=== PATIENT | female | born 1955 | race Caucasian/White ===

== ENCOUNTER 2017-09-26 12:00 | Inpatient (IN) | payer MEDICARE, OTHER ==
[~2017-09-26] VITALS: Ht 172.7 cm; Wt 62.7 kg
[~2017-09-26 12:00] MED LIST: CARB1TAB3 PO
--- NOTE | 2017-09-26 12:45 | RAD ---
CT scan of the head without contrast 09/26/2017 Clinical History: Slurred speech. Weakness. Code stroke. Technique: Unenhanced, contiguous, 5 mm axial sections were obtained through the head. One or more of the following individualized dose reduction techniques were utilized for this study: 1. Automated exposure control. 2. Adjustment of the mA and/or kV according to patient size. 3. Use of iterative reconstruction technique. Findings: No previous imaging studies are available for comparison. The patient is post left temporal craniotomy. There is mild generalized parenchymal atrophy. No acute parenchymal abnormality is seen. No extra-axial fluid collection is noted. No skull fracture is seen. Impression: No acute intracranial abnormality is seen. This result was called to Dr. eKn of the emergency department at 1217 hours. Electronically signed by: Juliocesar Elizondo MD (09/26/2017 12:42 PM) [id number]
[2017-09-26 12:52] LABS: BASO # 0.1 x10^3/uL (0.0-0.2); BASO % 1 % (0-3); EOS # 0.2 x10^3/uL (0.0-0.7); EOS % 2 % (0-3); HEMATOCRIT 38.8 % (36.0-47.0); HEMOGLOBIN 13.4 g/dL (12.0-15.5); LYMPH # 1.9 x10^3/uL (1.0-4.8); LYMPH % 20 % (24-48); MEAN CORPUSCULAR HEMOGLOBIN 30 pg (25-35); MEAN CORPUSCULAR HGB CONC 35 g/dL (31-37); MEAN CORPUSCULAR VOLUME 86 fL (79-100); MONO # 0.5 x10^3/uL (0.0-1.1); MONO % 6 % (0-9); NEUT # 6.5 x10^3uL (1.8-7.7); NEUT % 71 % (31-73); PLATELET COUNT 236 x10^3/uL (140-400); RED BLOOD COUNT 4.49 x10^6/uL (3.50-5.40); WHITE BLOOD COUNT 9.2 x10^3/uL (4.0-11.0)
[2017-09-26 12:59] LABS: CALCIUM 9.3 mg/dL (8.5-10.1); CREATININE 0.8 mg/dL (0.6-1.0); GFR 72.7; POTASSIUM 3.9 mmol/L (3.5-5.1)
--- NOTE | 2017-09-26 14:23 | PHYS DOC ---
Past History Past Medical History: No Pertinent History Past Surgical History: Appendectomy Smoking: Non-smoker Alcohol Use: None Drug Use: None Adult General Chief Complaint Chief Complaint: WEAKNESS/GENERALIZED HPI HPI Patient is a 61 year old F who presents with increasing falls over the past 2-3 weeks. She also describes blurred vision and decreased sensation in her hands and feet. Her notes drooling and coughing/choking after eating meals. She is accompanied by her states that this these symptoms are relatively unchanged over the past 24 hours. She also describes an occasional fluttering feeling in her chest. She denies chest pain. She does note mild dizziness. She has no other associated symptoms. She has no other exacerbating or alleviating factors. Review of Systems Review of Systems Constitutional: Denies fever or chills [] Eyes: Denies redness, or eye pain [] HENT: Denies nasal congestion or sore throat [] Respiratory: Denies cough or shortness of breath [] Cardiovascular: No additional information not addressed in HPI [] GI: Denies abdominal pain, nausea, vomiting, bloody stools or diarrhea [] : Denies dysuria or hematuria [] Musculoskeletal: Denies back pain or joint pain [] Integument: Denies rash or skin lesions [] Neurologic: Denies headache Endocrine: Denies polyuria or polydipsia [] All other systems were reviewed and found to be within normal limits, except as documented in this note. Family History Family History No pertinent family medical history reported Current Medications Current Medications Current medications reviewed Allergies Allergies Allergies Coded Allergies Type Severity Reaction Last Updated Verified bee venom (honey bee) Allergy Intermediate sob 12/13/13 No codeine Allergy Intermediate rash 12/13/13 No Physical Exam Physical Exam Constitutional: Well developed, well nourished, no acute distress, non-toxic appearance. [] HENT: Normocephalic, atraumatic, Eyes: EOMI, conjunctiva normal, no discharge. [] Decreased peripheral vision in all russo noted Neck: Normal range of motion, no tenderness, supple, no stridor. [] Cardiovascular:Heart rate regular rhythm, Lungs & Thorax: Bilateral breath sounds clear to auscultation [] Abdomen: Bowel sounds normal, soft, no tenderness, no masses, no pulsatile masses. [] Skin: Warm, dry, no erythema, no rash. [] Extremities: No tenderness, no cyanosis, no clubbing, ROM intact, no edema. [] Neurologic: Alert and oriented X 3, no focal deficits noted. [] Generalized weakness and decreased sensation in the hands and feet bilaterally Psychologic: Affect normal, judgement normal, mood normal. [] Current Patient Data Vital Signs Vital Signs Date Time Temp Pulse Resp B/P (MAP) Pulse Ox O2 Delivery O2 Flow Rate FiO2 09/27/17 05:20 97.5 69 18 140/86 (104) 96 Room Air 09/26/17 21:50 97.8 80 18 107/69 (82) 96 Room Air 09/26/17 19:20 Room Air 09/26/17 16:55 Room Air 09/26/17 15:38 97.9 55 20 162/85 (110) 99 Room Air 09/26/17 15:00 70 17 144/84 (104) 96 09/26/17 14:42 112 17 153/99 (117) 97 09/26/17 14:20 86 19 98 09/26/17 12:50 68 18 98 09/26/17 12:10 98.9 67 20 100 Room Air Lab Results Laboratory Tests Test 09/26/17 12:24 White Blood Count 9.2 x10^3/uL (4.0-11.0) Red Blood Count 4.49 x10^6/uL (3.50-5.40) Hemoglobin 13.4 g/dL (12.0-15.5) Hematocrit 38.8 % (36.0-47.0) Mean Corpuscular Volume 86 fL (79-100) Mean Corpuscular Hemoglobin 30 pg (25-35) Mean Corpuscular Hemoglobin Concent 35 g/dL (31-37) Red Cell Distribution Width 13.0 % (11.5-14.5) Platelet Count 236 x10^3/uL (140-400) Neutrophils (%) (Auto) 71 % (31-73) Lymphocytes (%) (Auto) 20 % (24-48) L Monocytes (%) (Auto) 6 % (0-9) Eosinophils (%) (Auto) 2 % (0-3) Basophils (%) (Auto) 1 % (0-3) Neutrophils # (Auto) 6.5 x10^3uL (1.8-7.7) Lymphocytes # (Auto) 1.9 x10^3/uL (1.0-4.8) Monocytes # (Auto) 0.5 x10^3/uL (0.0-1.1) Eosinophils # (Auto) 0.2 x10^3/uL (0.0-0.7) Basophils # (Auto) 0.1 x10^3/uL (0.0-0.2) Sodium Level 142 mmol/L (136-145) Potassium Level 3.9 mmol/L (3.5-5.1) Chloride Level 105 mmol/L (98-107) Carbon Dioxide Level 30 mmol/L (21-32) Anion Gap 7 (6-14) Blood Urea Nitrogen 17 mg/dL (7-20) Creatinine 0.8 mg/dL (0.6-1.0) Estimated GFR (Cockcroft-Gault) 72.7 Glucose Level 102 mg/dL (70-99) H Calcium Level 9.3 mg/dL (8.5-10.1) Creatine Kinase 37 U/L (26-192) Creatine Kinase MB (Mass) < 0.5 ng/mL (0.0-3.6) Creatine Kinase MB Relative Index 1.4 % (0-4) Troponin I Quantitative < 0.017 ng/mL (0-0.055) EKG EKG Sinus rhythm versus subtle a flutter. No ST changes Radiology/Procedures Radiology/Procedures CT head Impressions: No acute disease Course & Med Decision Making Course & Med Decision Making Pertinent Labs and Imaging studies reviewed. (See chart for details) [] Dragon Disclaimer Dragon Disclaimer This electronic medical record was generated, in whole or in part, using a voice recognition dictation system. Departure Departure: Impression: Primary Impression: Atrial flutter Disposition: ADMITTED INPATIENT Admitting Physician: Vivian Martino Condition: STABLE Referrals: WU,MANE (PCP) Problem Qualifiers Primary Impression: Atrial flutter Atrial flutter type: atypical Qualified Codes: I48.4 - Atypical atrial flutter ADORE COOPER MD Sep 26, 2017 14:23
--- NOTE | 2017-09-26 15:03 | EKG ---
[address] [address] Test Date: 2017-09-26 Test Time: 12:18:47 Pat Name: PHAM BISHOP Department: Room: Gender: F Legislative Correspondent: ARPAN : 1955 Requested By: ADORE COOPER Order Number: [id number] Reading MD: Measurements Intervals [place] Rate: 66 P: OK: QRS: 37 QRSD: 72 T: 58 QT: 382 QTc: 402 Interpretive Statements IRREGULAR RHYTHM, NO P-WAVE FOUND NO SPECIFIC ECG ABNORMALITIES RI6.01 No previous ECG available for comparison
[2017-09-26 15:16] LABS: CLARITY,URINE CLOUDY; COLOR,URINE YELLOW; GLUCOSE,URINE NEG (NEG)
[2017-09-26 15:17] LABS: BACTERIA,URINE MANY /HPF (0-FEW); BILIRUBIN,URINE NEG (NEG); NITRITE,URINE NEG (NEG); RBC,URINE OCC /HPF (0-2); SQUAMOUS EPITHELIAL CELL,UR MANY /LPF; UROBILINOGEN,URINE 0.2 mg/dL (0.2 mg/dL)
[2017-09-26 15:38] VITALS: BP 162/85
[2017-09-26] MEDS ORDERED: CHOL10003 PO (16:38)
[2017-09-26] MEDS ORDERED: OXYB5TAB PO (16:38)
[2017-09-26] MEDS ORDERED: LATA2.5D3 OU (16:38)
[2017-09-26] MEDS ORDERED: CARB1TAB47 PO (16:38)
[2017-09-26] MEDS ORDERED: ATOR10TA60 PO (16:38)
[2017-09-26] MEDS ORDERED: MULT1TAB45 PO (16:38)
--- NOTE | 2017-09-26 16:46 | NUR ---
NSG NOTE; ADMISSION ADMIT TO ROOM 109 AT 1530 FROM ED VIA CART ACCCOMP BY EMS PERSONNEL AND PT HAS INCREASED WEAKNESS X 1 WEEK WITH FALLS. 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 A FLUTTER WAS DISCOVERED IN THE ED BUT THE PT'S SAYS THAT IS NOT NEW
--- NOTE | 2017-09-26 16:49 | NUR ---
RUPALIG NOTE; DR oJao EDWARD CONSULT CALLED DIRECTLY TO HIM AT 1630 Addendum: 09/26/17 at 1908 by CHANELLE PAYNE RN DR EDWARD HERE TO SEE PT THIS BIBI
--- NOTE | 2017-09-26 16:50 | NUR ---
NSG NOTE; DR HERMAN CONSULT CALLED TO ANSWERING SERVICE AT 1638
--- NOTE | 2017-09-26 16:51 | NUR ---
NSG NOTE; HOME ENVIRONMENT MEALS ON WHEELS [address] [facility] PT/OT/ST COMES 3X WEEKLY FOR 3 MONTHS AT A TIME. SHE IS CURRENTLY NOT HAVING HOME HEALTH COME TO THE HOME ANNALEE IS ABLE TO PROVIDE HER CARES AT THE HOME
--- NOTE | 2017-09-26 19:08 | NUR ---
DR HERMAN CALLED ABOUT CONSULT AND WILL SEE PT IN THE AM
[2017-09-26] MEDS ORDERED: CARBIDOPA/LEVODOPA 25/100MG TABLET PO SCH (21:00)
[2017-09-26] MEDS ORDERED: OXYBUTYNIN CHLORIDE 5 MG TABLET PO SCH (21:00)
[2017-09-26] MEDS ORDERED: LATANOPROST 0.005% OPHTH SOLUTION 2.5ML BOTTLE. OU SCH (21:00)
[2017-09-26 21:50] VITALS: BP 107/69
[2017-09-27 05:20] VITALS: BP 140/86
--- NOTE | 2017-09-27 05:28 | PDOC1 ---
History of Present Illness Reason for Visit: Weakness History of Present Illness Pt states she was sent here by her PCP yesterday due to "not liking my heart rhythm." She reportedly had been feeling more weak lately. 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 This morning she denies chest pain, palpitatinos, dizziness, vomiting, abd pain, blood in stool, fever, sore throat, etc. She has a hx of PD and sees a neurologist at regularly. She states she has never been on blood thinners. Per nursing staff, she has had only a couple brief runs of atrial flutter but none recently (none since midnight). Chief Complaint: WEAKNESS/GENERALIZED Allergies: Coded Allergies: bee venom (honey bee) (Unverified Allergy, Intermediate, sob, 12/13/13) codeine (Unverified Allergy, Intermediate, rash, 12/13/13) Past Medical History Cardiac: hyperipidemia, Other (Atrial flutter) Musculoskeletal: Other (Parkinsons) Past Surgical History: Appendectomy, Other (S/p craniotomy) Family History: No pertinent hx Past Social History Smoke: No Alcohol: none Drugs: None Lives: with Family Review of Systems Review Of Systems Fourteen system , review of systems has been reviewed. See HPI for pertinent positives and negative responses, other merlos all other systems are negative, non pertinent or non contributory Allergies: Coded Allergies: bee venom (honey bee) (Unverified Allergy, Intermediate, sob, 12/13/13) codeine (Unverified Allergy, Intermediate, rash, 12/13/13) Medications Current Medications Pneumococcal Polyvalent Vaccine (Pneumovax 23) 0.5 ml ONCE ONCE VAX IM ; Start 09/27/17 at 09:00; Stop 09/27/17 at 09:01 Atorvastatin Calcium (Lipitor) 10 mg DAILY PO ; Start 09/27/17 at 09:00 Vitamin D (Vitamin D3) 1,000 unit DAILY PO ; Start 09/27/17 at 09:00 Latanoprost (Xalatan) 1 drop HS OU ; Start 09/26/17 at 21:00 Multivitamins (Chewable-Suri) 2 tab DAILY PO ; Start 09/27/17 at 09:00 Carbidopa/Levodopa (Sinemet 25/100) 1 tab HS PO Last administered on 09/26/17at 21:33; Start 09/26/17 at 21:00 Oxybutynin Chloride (Ditropan) 5 mg HS PO Last administered on 09/26/17at 21:33 ; Start 09/26/17 at 21:00 Active Scripts Active Reported Chewable-Suri (Multivitamin) 1 Each Tab.chew 2 Each PO DAILY Vitamin D3 (Cholecalciferol (Vitamin D3)) 1,000 Unit Tablet 1,000 Units PO DAILY Atorvastatin Calcium 10 Mg Tablet 10 Mg PO DAILY Latanoprost 2.5 Ml Drops 1 Drop OU HS Oxybutynin Chloride Er (Oxybutynin Chloride) 5 Mg Tab.er.24 5 Mg PO HS Carbidopa-Levo 25-100 Mg Odt (Carbidopa/Levodopa) 1 Each Tab.rapdis 1 Each PO HS Exam Vital Signs Vital Signs Date Time Temp Pulse Resp B/P (MAP) Pulse Ox O2 Delivery O2 Flow Rate FiO2 09/26/17 21:50 97.8 80 18 107/69 (82) 96 Room Air General Appearance: Alert, Oriented X3, Cooperative, No acute distress, Other ( Verbal responses appropriate but slow (which is baseline)) HEENT: Atraumatic, PERRLA, EOMI, Mucous membr. moist/pink, Other (Neck supple, no JVD, no LAD, no thyromegaly) Respiratory: Clear to auscultation, Normal air movement Heart: Regular rate, Normal S1, Normal S2, No murmurs Abdominal: Normal bowel sounds, Soft, No tenderness, No hepatospenomegaly, No masses Extremities: No edema, Normal pulses, No tenderness/swelling Skin: No rashes, No breakdown Neuro: Other (Pt fairly rigid with no resting tremors. Back stiff. No focal neurologic deficits noted.) Psych/Mental Status: Mood NL Assessment/Plan Assessment/Plan 1. Atrial flutter: Defer decision re: anticoagulation to cardiology, pt is definitely a fall risk w/ PD. Pt is in NSR now. Rate is controlled. F/u on labs this AM. 2. PD: Pt seen by Dr. Camargo. No changes in meds. Cont to f/u with neuro as outpatient. 3. DVT proph: Heparin. 4. Hyperlipidemia: Continue atorvastatin. 5. Disp: Pending cardiology evaluation. Potential d/c candidate. COURSE Allergies Coded Allergies Type Severity Reaction Last Updated Verified bee venom (honey bee) Allergy Intermediate sob 12/13/13 No codeine Allergy Intermediate rash 12/13/13 No Laboratory Tests Test 09/26/17 12:24 09/26/17 14:40 White Blood Count 9.2 x10^3/uL (4.0-11.0) Red Blood Count 4.49 x10^6/uL (3.50-5.40) Hemoglobin 13.4 g/dL (12.0-15.5) Hematocrit 38.8 % (36.0-47.0) Mean Corpuscular Volume 86 fL (79-100) Mean Corpuscular Hemoglobin 30 pg (25-35) Mean Corpuscular Hemoglobin Concent 35 g/dL (31-37) Red Cell Distribution Width 13.0 % (11.5-14.5) Platelet Count 236 x10^3/uL (140-400) Neutrophils (%) (Auto) 71 % (31-73) Lymphocytes (%) (Auto) 20 % (24-48) Monocytes (%) (Auto) 6 % (0-9) Eosinophils (%) (Auto) 2 % (0-3) Basophils (%) (Auto) 1 % (0-3) Neutrophils # (Auto) 6.5 x10^3uL (1.8-7.7) Lymphocytes # (Auto) 1.9 x10^3/uL (1.0-4.8) Monocytes # (Auto) 0.5 x10^3/uL (0.0-1.1) Eosinophils # (Auto) 0.2 x10^3/uL (0.0-0.7) Basophils # (Auto) 0.1 x10^3/uL (0.0-0.2) Sodium Level 142 mmol/L (136-145) Potassium Level 3.9 mmol/L (3.5-5.1) Chloride Level 105 mmol/L (98-107) Carbon Dioxide Level 30 mmol/L (21-32) Anion Gap 7 (6-14) Blood Urea Nitrogen 17 mg/dL (7-20) Creatinine 0.8 mg/dL (0.6-1.0) Estimated GFR (Cockcroft-Gault) 72.7 Glucose Level 102 mg/dL (70-99) Calcium Level 9.3 mg/dL (8.5-10.1) Creatine Kinase 37 U/L (26-192) Creatine Kinase MB (Mass) < 0.5 ng/mL (0.0-3.6) Creatine Kinase MB Relative Index 1.4 % (0-4) Troponin I Quantitative < 0.017 ng/mL (0-0.055) Urine Collection Type Unknown Urine Color Yellow Urine Clarity Cloudy Urine pH 7.0 Urine Specific [place] 1.020 Urine Protein Neg (NEG-TRACE) Urine Glucose (UA) Neg mg/dL (NEG) Urine Ketones (Stick) Neg mg/dL (NEG) Urine Blood Neg (NEG) Urine Nitrite Neg (NEG) Urine Bilirubin Neg (NEG) Urine Urobilinogen Dipstick 0.2 mg/dL (0.2 mg/dL) Urine Leukocyte Esterase Trace (NEG) Urine RBC Occ /HPF (0-2) Urine WBC 11-20 /HPF (0-4) Urine Squamous Epithelial Cells Many /LPF Urine Bacteria Many /HPF (0-FEW) Current Medications Medications (Trade) Dose Ordered Sig/Sidney Route PRN Reason Start Time Stop Time Status Last Admin Dose Admin Pneumococcal Polyvalent Vaccine (Pneumovax 23) 0.5 ml ONCE ONCE VAX IM 09/27/17 09:00 09/27/17 09:01 Atorvastatin Calcium (Lipitor) 10 mg DAILY PO 09/27/17 09:00 Vitamin D (Vitamin D3) 1,000 unit DAILY PO 09/27/17 09:00 Latanoprost (Xalatan) 1 drop HS OU 09/26/17 21:00 Multivitamins (Chewable-Suri) 2 tab DAILY PO 09/27/17 09:00 Carbidopa/Levodopa (Sinemet 25/100) 1 tab HS PO 09/26/17 21:00 09/26/17 21:33 Oxybutynin Chloride (Ditropan) 5 mg HS PO 09/26/17 21:00 09/26/17 21:33 I & O 09/27/17 00:00 Intake Total 390 ml Balance 390 ml Vital Signs Date Time Temp Pulse Resp B/P (MAP) Pulse Ox O2 Delivery O2 Flow Rate FiO2 09/26/17 21:50 97.8 80 18 107/69 (82) 96 Room Air EKG: NSR CT Head: Clinical History: Slurred speech. Weakness. Code stroke. Technique: Unenhanced, contiguous, 5 mm axial sections were obtained through the head. One or more of the following individualized dose reduction techniques were utilized for this study: 1. Automated exposure control. 2. Adjustment of the mA and/or kV according to patient size. 3. Use of iterative reconstruction technique. Findings: No previous imaging studies are available for comparison. The patient is post left temporal craniotomy. There is mild generalized parenchymal atrophy. No acute parenchymal abnormality is seen. No extra-axial fluid collection is noted. No skull fracture is seen. Impression: No acute intracranial abnormality is seen. MEGAN LIANG MD Sep 27, 2017 05:28
[2017-09-27 06:25] LABS: BASO # 0.1 x10^3/uL (0.0-0.2); BASO % 1 % (0-3); EOS # 0.2 x10^3/uL (0.0-0.7); EOS % 4 % (0-3); HEMATOCRIT 36.7 % (36.0-47.0); HEMOGLOBIN 12.9 g/dL (12.0-15.5); LYMPH % 31 % (24-48); MEAN CORPUSCULAR HEMOGLOBIN 30 pg (25-35); MEAN CORPUSCULAR HGB CONC 35 g/dL (31-37); MEAN CORPUSCULAR VOLUME 85 fL (79-100); MONO # 0.5 x10^3/uL (0.0-1.1); MONO % 7 % (0-9); NEUT # 3.8 x10^3uL (1.8-7.7); NEUT % 57 % (31-73); PLATELET COUNT 221 x10^3/uL (140-400); RED CELL DISTRIBUTION WIDTH 12.8 % (11.5-14.5); WHITE BLOOD COUNT 6.6 x10^3/uL (4.0-11.0)
[2017-09-27] MEDS: HEPARIN PF for SUB-Q USE 5,000 UNIT/0.5 ML VIAL. SQ SCH ×2 (06:26→13:36)
[2017-09-27 06:28] LABS: CREATININE 0.7 mg/dL (0.6-1.0); GFR 84.8; POTASSIUM 3.7 mmol/L (3.5-5.1)
[2017-09-27] MEDS ORDERED: [UNRECOGNIZED DRUG - OTHER] PO SCH (09:00)
[2017-09-27] MEDS ORDERED: ATORVASTATIN CALCIUM 10 MG TABLET. PO SCH (09:00)
[2017-09-27] MEDS ORDERED: PNEUMOC CONJ VACC 23-VALENT 0.5 ML VIAL. VAX IM ONE (09:00)
[2017-09-27] MEDS ORDERED: CHOLECALCIFEROL (VITAMIN D3) 1,000 UNIT TABLET PO SCH (09:00)
[2017-09-27 11:00] VITALS: BP 94/61
[2017-09-27] MEDS ORDERED: ACETAMINOPHEN 325 MG TABLET PO PRN (13:15)
[2017-09-27 15:31] VITALS: BP 147/87
--- NOTE | 2017-09-27 17:10 | PDOC ---
PROVIDER NOTE PROVIDER NOTE PROVIDER NOTE CARDIOLOGY CONSULTATION NOTE: Reason for consultation: Possible arrhythmia. HPI: Pleasant 61 y.o woman presenting for mental status change. Initial EMS EKG revealed possible concern for arrhythmia. She underwent CT head as part of a stroke protocol and this was negative. She was admitted for eval of possible atrial arrhythmias. She denies any chest pain, dyspnea, orthopnea or PND. No LE edema or prior cardiac disease. Thinks she may have had a remote history of possible palpitations. No recent issues but due to her history of parkinson's she has unsteady gait with the need for a cane. PMhx: 1. Atypical parkinson's disease. 2. Dyslipidemia Sochx: Lives with her . Retired. Famhx: Non-contributory. ALL: Bee venom and codeine. ROS: Negative for 03/15 systems reviewed unless otherwise noted above in HPI. Physical exam: VSS Gen: Flat affect. Poor muscle tone. CVS: RRR, no m/r/g. No carotid bruits. Normal pulses. Soft abd No edema. No MSK trauma. Skin without rashes. Diagnostic testing: CT head negative. Review of EMS strips reveals artifact without any signs of atrial arrhythmias. EKG is SR. No other EKG or telemetry is available for review that shows any evidence of arrhythmias. Trop negative. Impression: 1. Mental status change - likely chronic from underlying issues. 2. No evidence of atrial arrhythmias - Plan 1. No further CV recs. Pls call with questions. Thanks for consultation. COMFORT HERMAN MD Sep 27, 2017 17:10
[2017-09-27] MEDS ORDERED: CEPH-281 PO (18:38)
--- NOTE | 2017-09-27 18:43 | DISCH ---
DISCHARGE INSTRUCTIONS-DC Condition on Discharge Condition on Discharge: Stable Problems: Activity after Discharge Activity Instructions for Disc: No restrictions Diet after Discharge Diet after Discharge: Regular Checks after Discharge Checks after discharge: Check blood press - daily Contacting the DRMirza after DC Call your doctor for: If your condition worsens Follow-Up Follow up with: PCP next week MEGAN LIANG MD Sep 27, 2017 18:43
--- NOTE | 2017-09-27 18:48 | PDOC3 ---
Discharge Summary Discharge Summary Date of Admission Date of Admission: Sep 26, 2017 at 15:09 Admitting Diagnosis Abnormal heart rhythm (likely artifact per cardiology) Parkinson's UTI Date of Discharge: Sep 27, 2017 Discharge Diagnosis Abnormal heart rhythm (likely artifact per cardiology) Parkinson's UTI Laboratory Findings Laboratory Tests Test 09/26/17 12:24 09/26/17 14:40 09/27/17 05:51 White Blood Count 9.2 x10^3/uL (4.0-11.0) 6.6 x10^3/uL (4.0-11.0) Red Blood Count 4.49 x10^6/uL (3.50-5.40) 4.30 x10^6/uL (3.50-5.40) Hemoglobin 13.4 g/dL (12.0-15.5) 12.9 g/dL (12.0-15.5) Hematocrit 38.8 % (36.0-47.0) 36.7 % (36.0-47.0) Mean Corpuscular Volume 86 fL (79-100) 85 fL (79-100) Mean Corpuscular Hemoglobin 30 pg (25-35) 30 pg (25-35) Mean Corpuscular Hemoglobin Concent 35 g/dL (31-37) 35 g/dL (31-37) Red Cell Distribution Width 13.0 % (11.5-14.5) 12.8 % (11.5-14.5) Platelet Count 236 x10^3/uL (140-400) 221 x10^3/uL (140-400) Neutrophils (%) (Auto) 71 % (31-73) 57 % (31-73) Lymphocytes (%) (Auto) 20 % (24-48) 31 % (24-48) Monocytes (%) (Auto) 6 % (0-9) 7 % (0-9) Eosinophils (%) (Auto) 2 % (0-3) 4 % (0-3) Basophils (%) (Auto) 1 % (0-3) 1 % (0-3) Neutrophils # (Auto) 6.5 x10^3uL (1.8-7.7) 3.8 x10^3uL (1.8-7.7) Lymphocytes # (Auto) 1.9 x10^3/uL (1.0-4.8) 2.0 x10^3/uL (1.0-4.8) Monocytes # (Auto) 0.5 x10^3/uL (0.0-1.1) 0.5 x10^3/uL (0.0-1.1) Eosinophils # (Auto) 0.2 x10^3/uL (0.0-0.7) 0.2 x10^3/uL (0.0-0.7) Basophils # (Auto) 0.1 x10^3/uL (0.0-0.2) 0.1 x10^3/uL (0.0-0.2) Sodium Level 142 mmol/L (136-145) 142 mmol/L (136-145) Potassium Level 3.9 mmol/L (3.5-5.1) 3.7 mmol/L (3.5-5.1) Chloride Level 105 mmol/L (98-107) 107 mmol/L (98-107) Carbon Dioxide Level 30 mmol/L (21-32) 30 mmol/L (21-32) Anion Gap 7 (6-14) 5 (6-14) Blood Urea Nitrogen 17 mg/dL (7-20) 15 mg/dL (7-20) Creatinine 0.8 mg/dL (0.6-1.0) 0.7 mg/dL (0.6-1.0) Estimated GFR (Cockcroft-Gault) 72.7 84.8 Glucose Level 102 mg/dL (70-99) 91 mg/dL (70-99) Calcium Level 9.3 mg/dL (8.5-10.1) 9.0 mg/dL (8.5-10.1) Creatine Kinase 37 U/L (26-192) Creatine Kinase MB (Mass) < 0.5 ng/mL (0.0-3.6) Creatine Kinase MB Relative Index 1.4 % (0-4) Troponin I Quantitative < 0.017 ng/mL (0-0.055) Urine Collection Type Unknown Urine Color Yellow Urine Clarity Cloudy Urine pH 7.0 Urine Specific [place] 1.020 Urine Protein Neg (NEG-TRACE) Urine Glucose (UA) Neg mg/dL (NEG) Urine Ketones (Stick) Neg mg/dL (NEG) Urine Blood Neg (NEG) Urine Nitrite Neg (NEG) Urine Bilirubin Neg (NEG) Urine Urobilinogen Dipstick 0.2 mg/dL (0.2 mg/dL) Urine Leukocyte Esterase Trace (NEG) Urine RBC Occ /HPF (0-2) Urine WBC 11-20 /HPF (0-4) Urine Squamous Epithelial Cells Many /LPF Urine Bacteria Many /HPF (0-FEW) Hospital Course Pt was admitted through ER after being sent by PCP for abnormal heart rhythm. Cardiology was consulted and said abnormality likely artifact, no evidence of atrial flutter. Pt had a UA suggestive of UTI, and was given a 3 day course of Keflex. Culture pending at time of discharge. Pt to f/u with her PCP next week. Condition at Discharge: Stable Home Meds Active Scripts Cephalexin (CEPHALEXIN) 250 Mg Capsule, 500 MG PO BID, #6 CAP Prov:MEGAN LIANG MD 09/27/17 Reported Medications Multivitamin (CHEWABLE-AMITA) 1 Each Tab.chew, 2 EACH PO DAILY 09/26/17 Cholecalciferol (Vitamin D3) (VITAMIN D3) 1,000 Unit Tablet, 1000 UNITS PO DAILY 09/26/17 Atorvastatin Calcium (ATORVASTATIN CALCIUM) 10 Mg Tablet, 10 MG PO DAILY 09/26/17 Latanoprost (LATANOPROST) 2.5 Ml Drops, 1 DROP OU HS 09/26/17 Oxybutynin Chloride (OXYBUTYNIN CHLORIDE ER) 5 Mg Tab.er.24, 5 MG PO HS 09/26/17 Carbidopa/Levodopa (CARBIDOPA-LEVO 25-100 MG ODT) 1 Each Tab.rapdis, 1 EACH PO HS 09/26/17 Inpatient Meds Current Medications Pneumococcal Polyvalent Vaccine (Pneumovax 23) 0.5 ml ONCE ONCE VAX IM ; Start 09/27/17 at 09:00; Stop 09/27/17 at 09:01; Status DC Atorvastatin Calcium (Lipitor) 10 mg DAILY PO Last administered on 09/27/17at 08 :32; Start 09/27/17 at 09:00 Vitamin D (Vitamin D3) 1,000 unit DAILY PO Last administered on 09/27/17at 08:32 ; Start 09/27/17 at 09:00 Latanoprost (Xalatan) 1 drop HS OU ; Start 09/26/17 at 21:00 Multivitamins (Chewable-Amita) 2 tab DAILY PO Last administered on 09/27/17at 08: 32; Start 09/27/17 at 09:00 Carbidopa/Levodopa (Sinemet 25/100) 1 tab HS PO Last administered on 09/26/17at 21:33; Start 09/26/17 at 21:00 Oxybutynin Chloride (Ditropan) 5 mg HS PO Last administered on 09/26/17at 21:33 ; Start 09/26/17 at 21:00 Heparin Sodium (Porcine) (Heparin Sq) 5,000 unit Q8HRS SQ Last administered on 09/27/17at 13:36; Start 09/27/17 at 06:00 Acetaminophen (Tylenol) 650 mg PRN Q4HRS PRN PO PAIN; Start 09/27/17 at 13:15; Stop 09/27/17 at 14:14; Status DC Cephalexin HCl (Keflex) 500 mg BID PO ; Start 09/27/17 at 21:00; Stop 10/01/17 at 21:01 Lactobacillus Rhamnosus (Culturelle) 1 cap BID PO ; Start 09/27/17 at 21:00 Active Scripts Active Cephalexin 250 Mg Capsule 500 Mg PO BID Reported Chewable-Amita (Multivitamin) 1 Each Tab.chew 2 Each PO DAILY Vitamin D3 (Cholecalciferol (Vitamin D3)) 1,000 Unit Tablet 1,000 Units PO DAILY Atorvastatin Calcium 10 Mg Tablet 10 Mg PO DAILY Latanoprost 2.5 Ml Drops 1 Drop OU HS Oxybutynin Chloride Er (Oxybutynin Chloride) 5 Mg Tab.er.24 5 Mg PO HS Carbidopa-Levo 25-100 Mg Odt (Carbidopa/Levodopa) 1 Each Tab.rapdis 1 Each PO HS Activity: as tolerated Diet: Regular Consulting Physician: COMFORT HERMAN MD Consulting Speciality: Cardiac Follow-up Plan F/u with PCP in 1 week MEGAN LIANG MD Sep 27, 2017 18:48
--- NOTE | 2017-09-27 19:20 | NUR ---
Pt being discharged home with via private vehicle. DC paperwork reviewed with Pt and , understanding verbalized. Pt's gathered all belongings. Pt taken off unit via wheelchair, accompanied by nursing staff and .
[2017-09-27] MEDS ORDERED: CEPHALEXIN 250 MG CAPSULE PO SCH (21:00)
[2017-09-27] MEDS ORDERED: LACTOBACILLUS RHAMNOSUS GG 1 CAPSULE. PO SCH (21:00)
--- NOTE | 2017-09-28 08:41 | CONS ---
DATE OF CONSULTATION: 09/26/2017 REASON FOR CONSULTATION: Generalized weakness and difficulty to walk with frequent falling. HISTORY OF PRESENT ILLNESS: This is a 61-year-old right-handed female who was admitted through Emergency Room because of increasing symptoms of generalized weakness and stiffness, mainly prominent in the lower extremities to the point the patient has not been able to walk, but with assistance and using a walker. The patient stated her symptoms have been ongoing for the last 7-10 years, but has been progressive in the last week or so. She was diagnosed with superior canal dehiscence syndrome, required surgical repair about 10 years ago. Since that time, she has been having impaired balance and difficulty to walk. She has been followed up by a neurologist at [facility] and diagnosed with atypical Parkinson's disease. She was tried on carbidopa/levodopa 25/100 mg five tablets daily, but she could not tolerate it because of severe drowsiness. The medicine was gradually tapered off to the point she takes only tablet at bedtime. She is going to see her neurologist at [facility] next month for followup. Currently, the patient had a bout of atrial flutter and she has never been on anticoagulant. She had episodic atrial flutter in the past year, but she has not been seen or followup by [facility]. Currently, she denies headaches, visual disturbances, nausea, vomiting, chest pain, shortness of breath or palpitations, but she continued to complain of intermittent slurred speech and sometimes dysphagia and dysarthria. Initial nonenhanced head CT scan revealed no evidence for acute intracranial process. PAST MEDICAL HISTORY: Significant for hyperlipidemia, episodic atrial flutter, and symptoms of Parkinsonism described as difficulty to walk, impaired balance and rigidity with bradykinesia. Urinary incontinence and vitamin D deficiency and possible glaucoma. PAST SURGICAL HISTORY: Significant for appendectomy and status post craniotomy as described above. SOCIAL HISTORY: The patient is . She lives with her at home who is a caregiver. She denies smoking, alcohol drinking, or illicit drug use. CURRENT HOME MEDICATIONS: Carbidopa/levodopa 25/100 mg one tablet at bedtime, Lipitor 10 mg daily, vitamin D3 1000 units p.o. daily, multivitamins, oxybutynin 5 mg at bedtime, Xalatan 1 drop at bedtime. FAMILY HISTORY: Noncontributory. ALLERGIES: BEE VENOM and CODEINE. PHYSICAL EXAMINATION: GENERAL: Well-developed, well-nourished white female, not in acute distress. VITAL SIGNS: Blood pressure 107/69, respiratory rate 18, pulse is 80, temperature 97.8, oxygen saturation 96% on room air. HEENT: Normocephalic, atraumatic, otherwise unremarkable. NECK: Supple. Negative for carotid bruit, lymphadenopathy or thyromegaly. LUNGS: Clear to A and P. CARDIOVASCULAR: Regular rhythm. Normal S1, S2. ABDOMEN: Soft. Bowel sounds positive. EXTREMITIES: Negative for cyanosis, clubbing, pitting edema. NEUROLOGICAL: mental status: The patient is alert and oriented x 3. Speech is slightly slowed. There is no language dysfunction. Memory, judgment, and abstract thinking are fair. The patient denies hallucination or delusion. Cranial nerves: Visual russo are full. The pupils are reactive to light and accommodation. The extraocular movements are intact. There is no nystagmus. There is no facial, motor or sensory deficit. Hearing is intact bilaterally. The palate is elevated symmetrically. Sternocleidomastoid muscles are powerful bilaterally. The patient shrugs her shoulders symmetrically, protrudes her tongue in the midline without fasciculation or atrophy. Motor: No focal muscle bulk was seen. The tone is increased in the lower extremities. The strength is -4/5 in the lower extremities. The strength in the upper extremities 5/5 throughout. Sensory examination revealed normal pinprick, light touch, vibratory and position senses. Deep tendon reflexes were symmetric and active without pathology responses. Gait: The patient hardly stands up using a walker and assistance. IMPRESSION: 1. Gait disturbances with impaired balance, status post superior canal dehiscence syndrome, required surgical repair. 2. Symptoms consistent with Parkinsonism, but could not tolerate antiparkinsonism. 3. Multiple medical problems include hyperlipidemia and paroxysmal atrial flutter. RECOMMENDATIONS: 1. Continue with current management initiated by Dr. Martino. 2. Continue with carbidopa/levodopa for now. However, the declined increasing the medicine, even for a trial purpose because of previous history of significant side effects. Therefore, the patient continued to follow up with her neurologist at [facility]. 3. Cardiology consult. M Elier EDWARD MD DR: MIKAYLA/fidel JOB#: [id number] / [id number]
--- NOTE | 2017-09-29 00:50 | PN ---
DATE: 09/27/2017 REFERRING PHYSICIAN: Vivian Martino MD SUBJECTIVE: The patient denies any new medical or neurological complaints. She continues to have generalized weakness and difficulty to walk. OBJECTIVE: GENERAL: Well-developed, well-nourished female, not in acute distress. VITAL SIGNS: Blood pressure 140/86, respiratory rate 18, pulse 69, temperature 97.5, oxygen saturation 96% on room air. HEENT: Normocephalic, atraumatic, otherwise unremarkable. NECK: Supple. Negative for carotid bruit, lymphadenopathy, or thyromegaly. LUNGS: Clear to A and P. CARDIOVASCULAR: Regular rate and rhythm. Normal S1, S2. There is no S3, S4, or murmur. ABDOMEN: Soft. Bowel sounds positive. EXTREMITIES: Negative for cyanosis, clubbing, or pitting edema. NEUROLOGICAL EXAM: Mental Status: The patient is alert and oriented x 3. Speech is slow. There is no language dysfunction. Memory, judgment, and abstract thinking are fair. The patient denies hallucination or delusion. Cranial nerves are intact. Motor Examination: No focal muscle bulk seen. The strength was -4/5 in the lower extremities. Sensory examination: Normal pinprick and light touch senses. Deep tendon reflexes are symmetric and active without pathologic responses. Gait: The patient has difficulty to stand and walk. LABORATORY DATA: CBC revealed white blood cells of 6600, hemoglobin 12.9, hematocrit 36.7, platelet count 221,000. Chemistry revealed sodium 142, potassium 3.7, chloride 107, CO2 30, BUN 15, creatinine 0.7, glucose 91, calcium 9.90. Urinalysis revealed trace leukocyte esterase with white blood cells of 11-20. IMPRESSION: 1. Generalized weakness and difficulty to walk, status post superior canal dehiscence syndrome which required surgical repair. 2. Symptoms of Parkinsonism and possible atypical Parkinson disease, failed carbidopa and levodopa due to side effects. 3. Possible urinary tract infections. 4. Multiple medical problems to include episodic atrial flutter and hyperlipidemia. RECOMMENDATIONS: Continue with current management initiated by Dr. Jeffers. The patient might need urine cultures. M Elier EDWARD MD DR: MIKAYLA/fidel JOB#: [id number] / [id number]
== END 2017-09-27 19:25 | disposition home or self-care (01) | DRG 690 ==
LOC: ER 12:00 → 1 SOUTH 15:09
PROVIDERS: ADMIT Internal Medicine; ATTEND Internal Medicine
DX: N39.0 Urinary tract infection, site not specified (principal); G20 Parkinson's disease; E78.5 Hyperlipidemia, unspecified; R13.10 Dysphagia, unspecified; Z88.5 Allergy status to narcotic agent; Z90.49 Acquired absence of other specified parts of digestive tract; Z91.030 Bee allergy status; Z79.899 Other long term (current) drug therapy; Z79.01 Long term (current) use of anticoagulants
CPT/HCPCS: 36415; 70450; 80048; 81001; 82553; 84484; 85025; 87086; 90732; 93005; 99285-25